=== PATIENT | female | born 1935 | race Caucasian/White ===

== ENCOUNTER 2017-08-18 10:31 | Inpatient (IN) | payer MEDICARE, BC, OTHER ==
[2017-08-18] MEDS: SOD CHLORIDE 0.9% 1,000 ML IV (11:08)
[2017-08-18 12:24] LABS: ADD UMIC YES; UR ASCORBIC ACID NEGATIVE (NEGATIVE); UR BILIRUBIN (Dip) NEGATIVE (NEGATIVE); UR BLOOD (Dip) 1+ mg/dL (NEGATIVE); UR CLARITY CLEAR (CLEAR); UR COLOR YELLOW (YELLOW); UR GLUCOSE (Dip) NEGATIVE (NEGATIVE); UR KETONES (Dip) NEGATIVE (NEGATIVE); UR LEUKOCYTE ESTERASE (Dip) NEGATIVE Leu/ul (NEGATIVE); UR NITRITE (Dip) NEGATIVE (NEGATIVE); UR RBC 0 /HPF (0-5); UR SPECIFIC GRAVITY (Dip) 1.014 (1.003-1.030); UR TOTAL PROTEIN (Dip) NEGATIVE (NEGATIVE); UR UROBILINOGEN (Dip) 1+ mg/dL (NEGATIVE); UR WBC 0 /HPF (0-5)
[2017-08-18] MEDS: morphine 4 MG/ML VIAL IV (12:24)
[2017-08-18] MEDS: ONDANSETRON 4 MG INJ IV (12:24)
[2017-08-18 12:37] LABS: ADD MAN DIFF? NO
[2017-08-18 12:40] LABS: WHITE BLOOD COUNT 5.7 10^3/ul (4.8-10.8)
[2017-08-18 12:40] LABS: BASOPHILS % 0.4 % (0.0-2.0); EOSINOPHILS # 0.3 10^3/ul (0.0-0.5); EOSINOPHILS % 5.8 % (0.0-7.0); HEMATOCRIT 38.1 % (37.0-47.0); HEMOGLOBIN 12.6 g/dl (12.0-16.0); LYMPHOCYTES # 0.7 10^3/ul (0.8-2.9); LYMPHOCYTES % 12.9 % (15.0-51.0); MEAN CORPUSCULAR HEMOGLOBIN 28.2 pg (29.0-33.0); MEAN CORPUSCULAR HGB CONC 33.1 g/dl (32.0-37.0); MEAN CORPUSCULAR VOLUME 85.2 fl (82.0-101.0); MEAN PLATELET VOLUME 8.9 fl (7.4-10.4); MONOCYTE # 0.5 10^3/ul (0.3-0.9); MONOCYTES % 8.1 % (0.0-11.0); NEUTROPHIL # 4.1 10^3/ul (1.6-7.5); NEUTROPHILS % 72.3 % (39.0-77.0); PLATELET COUNT 227 10^3/UL (140-415); RED BLOOD COUNT 4.47 10^6/ul (4.20-5.40); RED CELL DISTRIBUTION WIDTH 13.4 % (11.5-14.5)
[2017-08-18 12:46] LABS: AMPHETAMINE/METHAMPHETAMINE Negative (NEGATIVE); BARBITURATES Negative (NEGATIVE); BENZODIAZEPINES Negative (NEGATIVE); CANNABINOIDS Negative (NEGATIVE); COCAINE Negative (NEGATIVE); OPIATES Positive (NEGATIVE)
[2017-08-18 12:59] LABS: ALANINE AMINOTRANSFERASE 31 IU/L (13-69); ALBUMIN 3.9 g/dl (3.3-4.9); ALBUMIN/GLOBULIN RATIO 1.44; ALKALINE PHOSPHATASE 81 IU/L (42-121); ANION GAP 14 (8-16); ASPARTATE AMINO TRANSFERASE 22 IU/L (15-46); BILIRUBIN,INDIRECT 0.9 mg/dl (0-1.1); BILIRUBIN,TOTAL 0.9 mg/dl (0.2-1.3); BLOOD UREA NITROGEN 19 mg/dl (7-20); CALCIUM 9.7 mg/dl (8.4-10.2); CARBON DIOXIDE 27 mmol/L (21-31); CHLORIDE 99 mmol/L (97-110); CREATININE 0.75 mg/dl (0.44-1.00); GLUCOSE 98 mg/dl (70-220); SODIUM 135 mmol/L (135-144); TOTAL PROTEIN 6.6 g/dl (6.1-8.1)
[2017-08-18 13:08] LABS: ACETAMINOPHEN < 10.0 ug/ml (10.0-30.0); ETHANOL < 10.0 mg/dl; SALICYLATE < 1.0 mg/dl (5.0-30.0)
[2017-08-18 13:10] LABS: TROPONIN-I < 0.012 ng/ml (0.00-0.12)
[2017-08-18] MEDS ORDERED: ACETAMINOPHEN 325 MG TAB (15:52)
[2017-08-18] MEDS: ACETAMINOPHEN 325 MG TAB PO (16:04)
[2017-08-18] MEDS ORDERED: DOCUSATE SODIUM 100 MG CAP PO (16:30)
[2017-08-18] MEDS ORDERED: NACL 0.9% 3 ML SYG IV (16:30)
[2017-08-18] MEDS ORDERED: MAGNESIUM HYDROXIDE 30ML CUP PO (16:30)
[2017-08-18] MEDS ORDERED: GUAIFENESIN 20 MG/ML 5ML CUP PO (16:30)
[2017-08-18] MEDS: ENOXAPARIN 30 MG/0.3 ML SYG SC (20:26)
[2017-08-18] MEDS: GABAPENTIN 300 MG CAP PO (22:51)
[2017-08-18] MEDS: HYDROCODONE/APAP (5/325) TAB PO (22:51)
[2017-08-18] MEDS: DOCUSATE SODIUM 100 MG CAP PO (22:51)
[2017-08-18] MEDS: LATANOPROST 0.005% 2.5 ML OPH BOTH EYES (22:54)
[2017-08-19] MEDS: ONDANSETRON 4 MG INJ IV (06:07)
[2017-08-19] MEDS: PANTOPRAZOLE (EC) 40 MG TAB PO (06:07)
[2017-08-19] MEDS: HYDROCODONE/APAP (5/325) TAB PO ×3 (06:08→20:59)
[2017-08-19 06:09] LABS: ADD MAN DIFF? NO
[2017-08-19] MEDS: LATANOPROST 0.005% 2.5 ML OPH BOTH EYES ×2 (06:14→20:58)
[2017-08-19 06:16] LABS: BASOPHILS % 0.5 % (0.0-2.0); EOSINOPHILS # 0.4 10^3/ul (0.0-0.5); EOSINOPHILS % 7.2 % (0.0-7.0); HEMATOCRIT 36.6 % (37.0-47.0); LYMPHOCYTES # 0.8 10^3/ul (0.8-2.9); LYMPHOCYTES % 13.6 % (15.0-51.0); MEAN CORPUSCULAR HEMOGLOBIN 27.9 pg (29.0-33.0); MEAN CORPUSCULAR HGB CONC 32.8 g/dl (32.0-37.0); MEAN CORPUSCULAR VOLUME 85.1 fl (82.0-101.0); MONOCYTE # 0.6 10^3/ul (0.3-0.9); MONOCYTES % 10.7 % (0.0-11.0); NEUTROPHILS % 67.8 % (39.0-77.0); PLATELET COUNT 226 10^3/UL (140-415); RED CELL DISTRIBUTION WIDTH 13.5 % (11.5-14.5)
[2017-08-19 06:16] LABS: WHITE BLOOD COUNT 5.8 10^3/ul (4.8-10.8)
[2017-08-19 06:30] LABS: HEMOGLOBIN A1C 5.3 % (0-5.9)
[2017-08-19 06:34] LABS: ALANINE AMINOTRANSFERASE 28 IU/L (13-69); ALBUMIN 3.6 g/dl (3.3-4.9); ALBUMIN/GLOBULIN RATIO 1.24; ALKALINE PHOSPHATASE 68 IU/L (42-121); ANION GAP 17 (8-16); ASPARTATE AMINO TRANSFERASE 23 IU/L (15-46); BILIRUBIN,INDIRECT 0.8 mg/dl (0-1.1); BILIRUBIN,TOTAL 0.8 mg/dl (0.2-1.3); BLOOD UREA NITROGEN 15 mg/dl (7-20); CALCIUM 9.3 mg/dl (8.4-10.2); CARBON DIOXIDE 26 mmol/L (21-31); CHLORIDE 100 mmol/L (97-110); CREATININE 0.77 mg/dl (0.44-1.00); GLUCOSE 92 mg/dl (70-220); POTASSIUM 4.5 mmol/L (3.5-5.1); SODIUM 138 mmol/L (135-144); TOTAL PROTEIN 6.5 g/dl (6.1-8.1)
[2017-08-19] MEDS ORDERED: PANTOPRAZOLE (EC) 40 MG TAB PO (09:00)
[2017-08-19] MEDS: DULOXETINE 30 MG CAP DR PO (09:05)
[2017-08-19] MEDS: POLYETHYLENE GLYCOL 17 GM PACKET PO (09:05)
[2017-08-19] MEDS: GABAPENTIN 300 MG CAP PO ×3 (09:05→20:58)
[2017-08-19] MEDS: DOCUSATE SODIUM 100 MG CAP PO ×2 (09:06→20:58)
[2017-08-19] MEDS: ENOXAPARIN 30 MG/0.3 ML SYG SC (09:09)
[2017-08-20] MEDS: HYDROCODONE/APAP (5/325) TAB PO ×2 (05:06→17:02)
[2017-08-20] MEDS: PANTOPRAZOLE (EC) 40 MG TAB PO (05:06)
[2017-08-20] MEDS: GABAPENTIN 300 MG CAP PO ×3 (08:16→20:30)
[2017-08-20] MEDS: ASPIRIN 81 MG TAB PO (08:16)
[2017-08-20] MEDS: DULOXETINE 30 MG CAP DR PO (08:17)
[2017-08-20] MEDS: POLYETHYLENE GLYCOL 17 GM PACKET PO (08:17)
[2017-08-20] MEDS: DOCUSATE SODIUM 100 MG CAP PO ×2 (08:17→20:30)
[2017-08-20] MEDS: ENOXAPARIN 30 MG/0.3 ML SYG SC (08:22)
[2017-08-20] MEDS: LATANOPROST 0.005% 2.5 ML OPH BOTH EYES (20:30)
[2017-08-21] MEDS: PANTOPRAZOLE (EC) 40 MG TAB PO (05:04)
[2017-08-21] MEDS: HYDROCODONE/APAP (5/325) TAB PO ×3 (06:15→20:57)
[2017-08-21 06:52] LABS: CHOL/HDL RATIO 2.9 RATIO; HDL CHOLESTEROL 55 mg/dl (33-92); LDL CHOLESTEROL,CALCULATED 94 mg/dl; TRIGLYCERIDES 57 mg/dl (0-149)
[2017-08-21 06:52] LABS: CHOLESTEROL 160 mg/dl (100-200)
[2017-08-21] MEDS: DOCUSATE SODIUM 100 MG CAP PO ×2 (09:00→21:00)
[2017-08-21] MEDS: DULOXETINE 30 MG CAP DR PO (09:00)
[2017-08-21] MEDS: GABAPENTIN 300 MG CAP PO ×3 (09:00→20:57)
[2017-08-21] MEDS: ASPIRIN 81 MG TAB PO (09:00)
[2017-08-21] MEDS: ENOXAPARIN 30 MG/0.3 ML SYG SC (09:00)
[2017-08-21] MEDS: POLYETHYLENE GLYCOL 17 GM PACKET PO (09:00)
[2017-08-21] MEDS: morphine 2 MG INJ IV (14:56)
[2017-08-21] MEDS: hydrALAzine 20 MG INJ IV (15:26)
[2017-08-21] MEDS: ACETAMINOPHEN 325 MG TAB PO (17:14)
[2017-08-21] MEDS: AMLODIPINE 5 MG TAB PO (17:14)
[2017-08-21] MEDS: LATANOPROST 0.005% 2.5 ML OPH BOTH EYES (21:01)
[2017-08-22] MEDS: PANTOPRAZOLE (EC) 40 MG TAB PO (05:58)
[2017-08-22] MEDS ORDERED: morphine 2 MG INJ IV (07:30)
[2017-08-22] MEDS: DEXTROSE 5%-0.45% NACL 1,000 ML IV (08:01)
[2017-08-22] MEDS: morphine 2 MG INJ IV ×2 (08:01→11:46)
[2017-08-22] MEDS: DULOXETINE 30 MG CAP DR PO (09:00)
[2017-08-22] MEDS: POLYETHYLENE GLYCOL 17 GM PACKET PO (09:00)
[2017-08-22] MEDS: ASPIRIN 81 MG TAB PO (09:00)
[2017-08-22] MEDS: LISINOPRIL 10 MG TAB PO (09:00)
[2017-08-22] MEDS: AMLODIPINE 5 MG TAB PO (09:00)
[2017-08-22] MEDS: GABAPENTIN 300 MG CAP PO ×3 (09:00→21:00)
[2017-08-22] MEDS: ENOXAPARIN 30 MG/0.3 ML SYG SC (09:00)
[2017-08-22] MEDS: DOCUSATE SODIUM 100 MG CAP PO ×2 (09:00→21:00)
[2017-08-22] MEDS ORDERED: POLYMYXIN/BACITRACIN 1L IRRIG (13:54)
[2017-08-22] MEDS ORDERED: morphine SULFATE/PF (10 MG/10 ML) INJ (14:18)
[2017-08-22] MEDS ORDERED: MIDAZOLAM 1 MG/ML 2 ML INJ (14:18)
[2017-08-22] MEDS ORDERED: FENTAnyl 50 MCG/ML VIAL (14:18)
[2017-08-22] MEDS ORDERED: PHENYLephrine (100 MCG/ML) 5ML SYG (15:17)
[2017-08-22] MEDS ORDERED: PHENYLephrine 10 MG INJ (16:25)
[2017-08-22] MEDS: TRANEXAMIC ACID 1,000 MG in DEXTROSE 5% 100 ML IV (16:28)
[2017-08-22] MEDS ORDERED: LIDOCAINE 2% (SDV) 5 ML INJ (16:56)
[2017-08-22] MEDS ORDERED: ROCURONIUM 50 MG INJ (16:56)
[2017-08-22] MEDS ORDERED: CEFAZOLIN 1 GM INJ (16:56)
[2017-08-22] MEDS ORDERED: ETOMIDATE 20 MG INJ (16:56)
[2017-08-22] MEDS ORDERED: ONDANSETRON 4 MG INJ (16:57)
[2017-08-22] MEDS ORDERED: BACITRACIN 0.9 GM OINT ×2 (16:57→16:58)
[2017-08-22] MEDS ORDERED: MUPIROCIN 2% 15 GM CR (16:59)
[2017-08-22] MEDS ORDERED: D5W-0.45 NACL + KCL 10 MEQ 1,000 ML IV (17:01)
[2017-08-22] MEDS ORDERED: FENTAnyl 50 MCG/ML VIAL IV (17:30)
[2017-08-22] MEDS ORDERED: HYDROCODONE/APAP (5/325) TAB PO (17:30)
[2017-08-22] MEDS ORDERED: HYDROmorphONE (0.2 MG/ML) 10ML SYG IV ×2 (17:30)
[2017-08-22] MEDS ORDERED: HYDROmorphONE 0.5 MG/0.5 ML SYG IV (17:30)
[2017-08-22] MEDS ORDERED: MEPERIDINE 25 MG INJ IV (17:30)
[2017-08-22] MEDS ORDERED: NACL 0.9% 3 ML SYG IV (17:30)
[2017-08-22] MEDS ORDERED: DIPHENHYDRAMINE 50 MG INJ IV (17:30)
[2017-08-22 17:31] LABS: HEMATOCRIT 34.6 % (37.0-47.0); HEMOGLOBIN 11.3 g/dl (12.0-16.0)
[2017-08-22 17:48] LABS: ANION GAP 15 (8-16); BLOOD UREA NITROGEN 22 mg/dl (7-20); CALCIUM 8.6 mg/dl (8.4-10.2); CARBON DIOXIDE 25 mmol/L (21-31); CHLORIDE 99 mmol/L (97-110); CREATININE 0.83 mg/dl (0.44-1.00); GLUCOSE 145 mg/dl (70-220); POTASSIUM 4.6 mmol/L (3.5-5.1); SODIUM 134 mmol/L (135-144)
[2017-08-22] MEDS: METOCLOPRAMIDE 10 MG INJ IV ×2 (18:24→18:29)
[2017-08-22] MEDS: ONDANSETRON 4 MG INJ IV (18:30)
[2017-08-22] MEDS: LACTATED RINGER'S 500 ML IV (18:42)
[2017-08-22] MEDS: EPHEDrine SULFATE 50 MG/5 ML SYG IV (18:57)
[2017-08-22] MEDS: D5W-0.45 NACL + KCL 10 MEQ 1,000 ML IV (20:30)
[2017-08-22] MEDS: CEFAZOLIN 1 GM/50 ML (PMX) 50 ML IVPB (20:33)
[2017-08-22] MEDS: ACETAMINOPHEN 325 MG TAB PO (20:45)
[2017-08-22] MEDS: LATANOPROST 0.005% 2.5 ML OPH BOTH EYES (22:22)
[2017-08-23] MEDS: CEFAZOLIN 1 GM/50 ML (PMX) 50 ML IVPB ×2 (04:35→09:01)
[2017-08-23] MEDS: PANTOPRAZOLE (EC) 40 MG TAB PO (05:06)
[2017-08-23] MEDS: ACETAMINOPHEN 325 MG TAB PO ×2 (05:07→17:43)
[2017-08-23] MEDS: D5W-0.45 NACL + KCL 10 MEQ 1,000 ML IV (05:43)
[2017-08-23] MEDS: DULOXETINE 30 MG CAP DR PO (08:44)
[2017-08-23] MEDS: ASPIRIN 81 MG TAB PO (08:48)
[2017-08-23] MEDS: GABAPENTIN 300 MG CAP PO ×3 (08:48→20:42)
[2017-08-23] MEDS: AMLODIPINE 5 MG TAB PO (08:49)
[2017-08-23] MEDS: LISINOPRIL 10 MG TAB PO (08:50)
[2017-08-23] MEDS: POLYETHYLENE GLYCOL 17 GM PACKET PO (08:50)
[2017-08-23] MEDS: DOCUSATE SODIUM 100 MG CAP PO ×2 (08:51→20:42)
[2017-08-23] MEDS: ENOXAPARIN 30 MG/0.3 ML SYG SC (08:59)
[2017-08-23] MEDS ORDERED: ENOXAPARIN 40 MG/0.4 ML SYG SC (09:00)
[2017-08-23] MEDS: HYDROCODONE/APAP (5/325) TAB PO ×2 (09:43→23:55)
[2017-08-23 11:25] LABS: ADD MAN DIFF? NO
[2017-08-23 11:28] LABS: WHITE BLOOD COUNT 7.6 10^3/ul (4.8-10.8)
[2017-08-23 11:28] LABS: ABNORMAL IP MESSAGE 1; BASOPHILS % 0.3 % (0.0-2.0); EOSINOPHILS # 0.1 10^3/ul (0.0-0.5); EOSINOPHILS % 0.8 % (0.0-7.0); HEMATOCRIT 25.8 % (37.0-47.0); HEMOGLOBIN 8.3 g/dl (12.0-16.0); LYMPHOCYTES # 0.6 10^3/ul (0.8-2.9); LYMPHOCYTES % 7.6 % (15.0-51.0); MEAN CORPUSCULAR HEMOGLOBIN 27.7 pg (29.0-33.0); MEAN CORPUSCULAR HGB CONC 32.2 g/dl (32.0-37.0); MONOCYTE # 0.8 10^3/ul (0.3-0.9); MONOCYTES % 10.5 % (0.0-11.0); NEUTROPHIL # 6.1 10^3/ul (1.6-7.5); NEUTROPHILS % 80.4 % (39.0-77.0); PLATELET COUNT 197 10^3/UL (140-415); RED CELL DISTRIBUTION WIDTH 13.6 % (11.5-14.5)
[2017-08-23 11:34] LABS: POSITIVE DIFF @See below
[2017-08-23 13:00] LABS: ANION GAP 15 (8-16); BLOOD UREA NITROGEN 26 mg/dl (7-20); CALCIUM 7.8 mg/dl (8.4-10.2); CARBON DIOXIDE 23 mmol/L (21-31); CHLORIDE 98 mmol/L (97-110); CREATININE 1.01 mg/dl (0.44-1.00); GLUCOSE 131 mg/dl (70-220); POTASSIUM 4.8 mmol/L (3.5-5.1); SODIUM 131 mmol/L (135-144)
[2017-08-23 18:06] LABS: IMMEDIATE SPIN CROSSMATCH 1 3
[2017-08-23] MEDS: LATANOPROST 0.005% 2.5 ML OPH BOTH EYES (20:42)
[2017-08-24 05:14] LABS: ADD MAN DIFF? NO; BASOPHILS % 0.4 % (0.0-2.0); EOSINOPHILS # 0.3 10^3/ul (0.0-0.5); EOSINOPHILS % 3.4 % (0.0-7.0); HEMATOCRIT 23.9 % (37.0-47.0); HEMOGLOBIN 8.1 g/dl (12.0-16.0); LYMPHOCYTES # 0.9 10^3/ul (0.8-2.9); LYMPHOCYTES % 9.6 % (15.0-51.0); MEAN CORPUSCULAR HEMOGLOBIN 28.4 pg (29.0-33.0); MEAN CORPUSCULAR HGB CONC 33.9 g/dl (32.0-37.0); MEAN CORPUSCULAR VOLUME 83.9 fl (82.0-101.0); MEAN PLATELET VOLUME 9.5 fl (7.4-10.4); MONOCYTE # 1.2 10^3/ul (0.3-0.9); MONOCYTES % 12.6 % (0.0-11.0); NEUTROPHIL # 7.2 10^3/ul (1.6-7.5); NEUTROPHILS % 73.7 % (39.0-77.0); PLATELET COUNT 187 10^3/UL (140-415); RED BLOOD COUNT 2.85 10^6/ul (4.20-5.40)
[2017-08-24 05:14] LABS: WHITE BLOOD COUNT 9.7 10^3/ul (4.8-10.8)
[2017-08-24 05:38] LABS: ANION GAP 13 (8-16); BLOOD UREA NITROGEN 38 mg/dl (7-20); CALCIUM 7.7 mg/dl (8.4-10.2); CARBON DIOXIDE 23 mmol/L (21-31); CHLORIDE 99 mmol/L (97-110); GLUCOSE 98 mg/dl (70-220); SODIUM 130 mmol/L (135-144)
[2017-08-24 05:41] LABS: PHOSPHORUS 3.5 mg/dl (2.5-4.9)
[2017-08-24 05:41] LABS: MAGNESIUM 1.8 mg/dl (1.7-2.5)
[2017-08-24] MEDS: PANTOPRAZOLE (EC) 40 MG TAB PO (05:47)
[2017-08-24] MEDS: HYDROCODONE/APAP (5/325) TAB PO ×5 (05:50→19:10)
[2017-08-24] MEDS: LISINOPRIL 10 MG TAB PO (09:00)
[2017-08-24] MEDS: DULOXETINE 30 MG CAP DR PO (09:17)
[2017-08-24] MEDS: GABAPENTIN 300 MG CAP PO ×3 (09:18→21:00)
[2017-08-24] MEDS: DOCUSATE SODIUM 100 MG CAP PO ×2 (09:18→21:00)
[2017-08-24] MEDS: POLYETHYLENE GLYCOL 17 GM PACKET PO (09:18)
[2017-08-24] MEDS: AMLODIPINE 5 MG TAB PO (09:20)
[2017-08-24] MEDS: ASPIRIN 81 MG TAB PO (09:20)
[2017-08-24] MEDS: ENOXAPARIN 30 MG/0.3 ML SYG SC (09:22)
[2017-08-24] MEDS: morphine 2 MG INJ IV ×2 (14:10→19:41)
[2017-08-24 16:40] LABS: ADD UMIC YES; UR ASCORBIC ACID NEGATIVE (NEGATIVE); UR BACTERIA FEW /HPF (NONE SEEN); UR BILIRUBIN (Dip) NEGATIVE (NEGATIVE); UR BLOOD (Dip) 1+ mg/dL (NEGATIVE); UR CLARITY CLOUDY (CLEAR); UR COLOR YELLOW (YELLOW); UR GLUCOSE (Dip) NEGATIVE (NEGATIVE); UR KETONES (Dip) NEGATIVE (NEGATIVE); UR LEUKOCYTE ESTERASE (Dip) 3+ Leu/ul (NEGATIVE); UR MUCUS FEW /HPF (NONE SEEN); UR NITRITE (Dip) NEGATIVE (NEGATIVE); UR NONSQUAMOUS EPITHELIAL CELL 1 /HPF (NONE SEEN); UR RBC 9 /HPF (0-5); UR SPECIFIC GRAVITY (Dip) 1.017 (1.003-1.030); UR SQUAMOUS EPITHELIAL CELL MODERATE /HPF (FEW); UR TOTAL PROTEIN (Dip) NEGATIVE (NEGATIVE); UR UROBILINOGEN (Dip) 1+ mg/dL (NEGATIVE); UR WBC 145 /HPF (0-5)
[2017-08-24] MEDS: CEFTRIAXONE 1 GM/50 ML (PMX) 50 ML IVPB (19:11)
[2017-08-24] MEDS: ONDANSETRON 4 MG INJ IV (19:46)
[2017-08-24] MEDS: LATANOPROST 0.005% 2.5 ML OPH BOTH EYES (21:00)
[2017-08-25 04:38] LABS: ADD MAN DIFF? NO
[2017-08-25 04:47] LABS: WHITE BLOOD COUNT 7.8 10^3/ul (4.8-10.8)
[2017-08-25 04:47] LABS: BASOPHILS % 0.4 % (0.0-2.0); EOSINOPHILS # 0.5 10^3/ul (0.0-0.5); EOSINOPHILS % 6.9 % (0.0-7.0); HEMATOCRIT 26.2 % (37.0-47.0); HEMOGLOBIN 8.7 g/dl (12.0-16.0); LYMPHOCYTES % 12.1 % (15.0-51.0); MEAN CORPUSCULAR HEMOGLOBIN 28.4 pg (29.0-33.0); MEAN CORPUSCULAR HGB CONC 33.2 g/dl (32.0-37.0); MEAN CORPUSCULAR VOLUME 85.6 fl (82.0-101.0); MEAN PLATELET VOLUME 9.2 fl (7.4-10.4); MONOCYTES % 12.1 % (0.0-11.0); NEUTROPHIL # 5.3 10^3/ul (1.6-7.5); PLATELET COUNT 203 10^3/UL (140-415); RED BLOOD COUNT 3.06 10^6/ul (4.20-5.40)
[2017-08-25 05:07] LABS: ANION GAP 12 (8-16); BLOOD UREA NITROGEN 42 mg/dl (7-20); CALCIUM 8.3 mg/dl (8.4-10.2); CARBON DIOXIDE 25 mmol/L (21-31); CHLORIDE 100 mmol/L (97-110); CREATININE 1.11 mg/dl (0.44-1.00); GLUCOSE 100 mg/dl (70-220); MAGNESIUM 2.1 mg/dl (1.7-2.5); POTASSIUM 5.4 mmol/L (3.5-5.1); SODIUM 132 mmol/L (135-144)
[2017-08-25 05:07] LABS: PHOSPHORUS 3.6 mg/dl (2.5-4.9)
[2017-08-25] MEDS: morphine 2 MG INJ IV ×2 (05:21→11:58)
[2017-08-25] MEDS: PANTOPRAZOLE (EC) 40 MG TAB PO (05:21)
[2017-08-25] MEDS: AMLODIPINE 5 MG TAB PO (08:13)
[2017-08-25] MEDS: GABAPENTIN 300 MG CAP PO ×3 (08:13→21:40)
[2017-08-25] MEDS: ASPIRIN 81 MG TAB PO (08:14)
[2017-08-25] MEDS: DOCUSATE SODIUM 100 MG CAP PO ×2 (08:14→21:40)
[2017-08-25] MEDS: DULOXETINE 30 MG CAP DR PO (08:15)
[2017-08-25] MEDS: POLYETHYLENE GLYCOL 17 GM PACKET PO (08:15)
[2017-08-25] MEDS: ENOXAPARIN 30 MG/0.3 ML SYG SC (08:16)
[2017-08-25] MEDS: HYDROCODONE/APAP (5/325) TAB PO ×2 (10:07→19:57)
[2017-08-25] MEDS: BISACODYL (EC) 5 MG TAB PO (16:24)
[2017-08-25] MEDS: MAGNESIUM HYDROXIDE 30ML CUP PO (16:25)
[2017-08-25] MEDS: CEFTRIAXONE 1 GM/50 ML (PMX) 50 ML IVPB (17:20)
[2017-08-25] MEDS: LATANOPROST 0.005% 2.5 ML OPH BOTH EYES (21:41)
[2017-08-25] MEDS: ACETAMINOPHEN 325 MG TAB PO (22:15)
[2017-08-26 04:47] LABS: ADD MAN DIFF? NO
[2017-08-26 04:53] LABS: BASOPHILS % 0.3 % (0.0-2.0); EOSINOPHILS # 0.5 10^3/ul (0.0-0.5); EOSINOPHILS % 7.7 % (0.0-7.0); HEMATOCRIT 28.7 % (37.0-47.0); HEMOGLOBIN 9.5 g/dl (12.0-16.0); LYMPHOCYTES # 0.7 10^3/ul (0.8-2.9); LYMPHOCYTES % 12.1 % (15.0-51.0); MEAN CORPUSCULAR HEMOGLOBIN 28.4 pg (29.0-33.0); MEAN CORPUSCULAR HGB CONC 33.1 g/dl (32.0-37.0); MEAN CORPUSCULAR VOLUME 85.9 fl (82.0-101.0); MEAN PLATELET VOLUME 9.2 fl (7.4-10.4); MONOCYTE # 0.7 10^3/ul (0.3-0.9); MONOCYTES % 11.1 % (0.0-11.0); NEUTROPHIL # 4.1 10^3/ul (1.6-7.5); NEUTROPHILS % 68.5 % (39.0-77.0); PLATELET COUNT 253 10^3/UL (140-415); RED BLOOD COUNT 3.34 10^6/ul (4.20-5.40); RED CELL DISTRIBUTION WIDTH 13.8 % (11.5-14.5)
[2017-08-26 05:12] LABS: MAGNESIUM 2.3 mg/dl (1.7-2.5)
[2017-08-26 05:12] LABS: PHOSPHORUS 3.3 mg/dl (2.5-4.9)
[2017-08-26 05:15] LABS: ANION GAP 14 (8-16); BLOOD UREA NITROGEN 36 mg/dl (7-20); CALCIUM 8.6 mg/dl (8.4-10.2); CARBON DIOXIDE 25 mmol/L (21-31); CHLORIDE 100 mmol/L (97-110); CREATININE 0.93 mg/dl (0.44-1.00); GLUCOSE 101 mg/dl (70-220); POTASSIUM 5.5 mmol/L (3.5-5.1); SODIUM 133 mmol/L (135-144)
[2017-08-26] MEDS: MAGNESIUM HYDROXIDE 30ML CUP PO (06:21)
[2017-08-26] MEDS: PANTOPRAZOLE (EC) 40 MG TAB PO (06:21)
[2017-08-26] MEDS: HYDROCODONE/APAP (5/325) TAB PO ×4 (06:22→20:49)
[2017-08-26] MEDS: DULOXETINE 30 MG CAP DR PO (09:48)
[2017-08-26] MEDS: DOCUSATE SODIUM 100 MG CAP PO ×2 (09:48→20:41)
[2017-08-26] MEDS: ENOXAPARIN 30 MG/0.3 ML SYG SC (09:48)
[2017-08-26] MEDS: POLYETHYLENE GLYCOL 17 GM PACKET PO (09:49)
[2017-08-26] MEDS: AMLODIPINE 5 MG TAB PO (09:49)
[2017-08-26] MEDS: GABAPENTIN 300 MG CAP PO ×3 (09:49→20:41)
[2017-08-26] MEDS: morphine 2 MG INJ IV (09:54)
[2017-08-26] MEDS: ASPIRIN 81 MG TAB PO (09:55)
[2017-08-26] MEDS: MAGNESIUM CITRATE 300 ML BTL PO (11:00)
[2017-08-26] MEDS: SOD CHLORIDE 0.9% 1,000 ML IV ×2 (11:46→23:30)
[2017-08-26] MEDS: CEFTRIAXONE 1 GM/50 ML (PMX) 50 ML IVPB (17:08)
[2017-08-26] MEDS: LATANOPROST 0.005% 2.5 ML OPH BOTH EYES (20:45)
[2017-08-27] MEDS: HYDROCODONE/APAP (5/325) TAB PO ×4 (04:27→19:30)
[2017-08-27 06:00] LABS: ADD MAN DIFF? NO
[2017-08-27 06:27] LABS: BASOPHILS % 0.4 % (0.0-2.0); EOSINOPHILS # 0.5 10^3/ul (0.0-0.5); EOSINOPHILS % 9.8 % (0.0-7.0); HEMATOCRIT 29.3 % (37.0-47.0); HEMOGLOBIN 9.5 g/dl (12.0-16.0); LYMPHOCYTES # 0.9 10^3/ul (0.8-2.9); LYMPHOCYTES % 18.3 % (15.0-51.0); MEAN CORPUSCULAR HEMOGLOBIN 28.4 pg (29.0-33.0); MEAN CORPUSCULAR HGB CONC 32.4 g/dl (32.0-37.0); MEAN CORPUSCULAR VOLUME 87.5 fl (82.0-101.0); MEAN PLATELET VOLUME 9.2 fl (7.4-10.4); MONOCYTE # 0.5 10^3/ul (0.3-0.9); MONOCYTES % 10.8 % (0.0-11.0); NEUTROPHILS % 60.1 % (39.0-77.0); PLATELET COUNT 276 10^3/UL (140-415); RED BLOOD COUNT 3.35 10^6/ul (4.20-5.40); RED CELL DISTRIBUTION WIDTH 13.9 % (11.5-14.5)
[2017-08-27 06:27] LABS: WHITE BLOOD COUNT 4.9 10^3/ul (4.8-10.8)
[2017-08-27 06:52] LABS: MAGNESIUM 2.3 mg/dl (1.7-2.5)
[2017-08-27 06:52] LABS: PHOSPHORUS 3.7 mg/dl (2.5-4.9)
[2017-08-27 07:00] LABS: ANION GAP 12 (8-16); BLOOD UREA NITROGEN 37 mg/dl (7-20); CALCIUM 8.8 mg/dl (8.4-10.2); CARBON DIOXIDE 26 mmol/L (21-31); CHLORIDE 100 mmol/L (97-110); CREATININE 0.94 mg/dl (0.44-1.00); GLUCOSE 88 mg/dl (70-220); POTASSIUM 5.5 mmol/L (3.5-5.1); SODIUM 132 mmol/L (135-144)
[2017-08-27] MEDS: MAGNESIUM HYDROXIDE 30ML CUP PO (07:02)
[2017-08-27] MEDS: PANTOPRAZOLE (EC) 40 MG TAB PO (07:02)
[2017-08-27] MEDS: POLYETHYLENE GLYCOL 17 GM PACKET PO (08:29)
[2017-08-27] MEDS: DULOXETINE 30 MG CAP DR PO (08:29)
[2017-08-27] MEDS: DOCUSATE SODIUM 100 MG CAP PO (08:29)
[2017-08-27] MEDS: GABAPENTIN 300 MG CAP PO ×2 (08:30→15:39)
[2017-08-27] MEDS: AMLODIPINE 5 MG TAB PO (08:33)
[2017-08-27] MEDS: ENOXAPARIN 30 MG/0.3 ML SYG SC (08:39)
[2017-08-27] MEDS: ASPIRIN 81 MG TAB PO (09:00)
[2017-08-27] MEDS: NA POLYST SULFON 15 GM/60 ML BTL PO (10:44)
[2017-08-27] MEDS: NA PHOSPHATE/BIPHOS 133 ML ENEMA PR (10:44)
[2017-08-27] MEDS: morphine 2 MG INJ IV (11:14)
[2017-08-27] MEDS: SOD CHLORIDE 0.9% 1,000 ML IV (12:00)
[2017-08-27] MEDS: CEFTRIAXONE 1 GM/50 ML (PMX) 50 ML IVPB (18:22)
[2017-08-27] MEDS ORDERED: BALSAM PERU/CASTOR OIL 60 GM TUBE TOP (21:00)
== END 2017-08-27 19:57 | DRG 469 ==
LOC: MS1 08-22 18:50 → E/R 10:31 → MS2 15:52
PROVIDERS: Pediatrics
PROC: 0SRS0JZ Replacement of Left Hip Joint, Femoral Surface with Synthetic Substitute, Open Approach (ICD-10-PCS; principal; 2017-08-22 13:00)
PROC: 30233N1 Transfusion of Nonautologous Red Blood Cells into Peripheral Vein, Percutaneous Approach (ICD-10-PCS; 2017-08-22 14:39)
DX: S72.012A Unspecified intracapsular fracture of left femur, initial encounter for closed fracture (principal); G92 Toxic encephalopathy; N17.9 Acute kidney failure, unspecified; N39.0 Urinary tract infection, site not specified; I10 Essential (primary) hypertension; W07.XXXA Fall from chair, initial encounter; Y92.098 Other place in other non-institutional residence as the place of occurrence of the external cause; F32.9 Major depressive disorder, single episode, unspecified; H40.9 Unspecified glaucoma; K59.00 Constipation, unspecified; M16.12 Unilateral primary osteoarthritis, left hip; M79.7 Fibromyalgia; E78.5 Hyperlipidemia, unspecified; M21.372 Foot drop, left foot; G93.89 Other specified disorders of brain; E87.5 Hyperkalemia; L89.152 Pressure ulcer of sacral region, stage 2; D64.9 Anemia, unspecified; Z86.73 Personal history of transient ischemic attack (TIA), and cerebral infarction without residual deficits
CPT/HCPCS: 36415; 36430; 70450; 70551; 71045; 72125; 72170; 72192; 73550; 73560; 80048; 80053; 80061; 80306; 80307; 81001; 82607; 83036; 83735; 84100; 84443; 84484; 85014; 85018; 85025; 86850; 86900; 86901; 86920; 87086; 88305; 88311; 93005; 93306; 96372; 96374; 96375; 97110; 97163; 97530; 99285-25

== ENCOUNTER 2017-08-27 19:59 | Inpatient (IN) | payer MEDICARE, BC ==
[2017-08-27] MEDS ORDERED: MAGNESIUM HYDROXIDE 30ML CUP PO ×2 (20:33)
[2017-08-27] MEDS ORDERED: DOCUSATE SODIUM 100 MG CAP PO (20:33)
[2017-08-27] MEDS ORDERED: AMLODIPINE 5 MG TAB PO (20:33)
[2017-08-27] MEDS ORDERED: GUAIFENESIN 20 MG/ML 5ML CUP PO (20:41)
[2017-08-27] MEDS ORDERED: NACL 0.9% 3 ML SYG IV ×2 (20:41)
[2017-08-27] MEDS ORDERED: ONDANSETRON 4 MG INJ IV (20:41)
[2017-08-27] MEDS: DOCUSATE SODIUM 100 MG CAP PO (22:00)
[2017-08-27] MEDS: GABAPENTIN 300 MG CAP PO (22:00)
[2017-08-27] MEDS: CEFTRIAXONE 1 GM/50 ML (PMX) 50 ML IVPB (22:00)
[2017-08-27] MEDS: HYDROCODONE/APAP (5/325) TAB PO (22:01)
[2017-08-27] MEDS: BALSAM PERU/CASTOR OIL 60 GM TUBE TOP (22:07)
[2017-08-27] MEDS: LATANOPROST 0.005% 2.5 ML OPH BOTH EYES (22:11)
[2017-08-27 23:21] LABS: ADD UMIC NO; UR ASCORBIC ACID NEGATIVE (NEGATIVE); UR BILIRUBIN (Dip) NEGATIVE (NEGATIVE); UR BLOOD (Dip) NEGATIVE (NEGATIVE); UR CLARITY CLEAR (CLEAR); UR COLOR YELLOW (YELLOW); UR GLUCOSE (Dip) NEGATIVE (NEGATIVE); UR KETONES (Dip) NEGATIVE (NEGATIVE); UR LEUKOCYTE ESTERASE (Dip) NEGATIVE Leu/ul (NEGATIVE); UR NITRITE (Dip) NEGATIVE (NEGATIVE); UR SPECIFIC GRAVITY (Dip) 1.012 (1.003-1.030); UR TOTAL PROTEIN (Dip) NEGATIVE (NEGATIVE); UR UROBILINOGEN (Dip) NEGATIVE (NEGATIVE)
[2017-08-28] MEDS: PANTOPRAZOLE (EC) 40 MG TAB PO (06:14)
[2017-08-28] MEDS: HYDROCODONE/APAP (5/325) TAB PO ×4 (06:14→18:58)
[2017-08-28 06:34] LABS: ADD MAN DIFF? NO
[2017-08-28 06:39] LABS: WHITE BLOOD COUNT 5.3 10^3/ul (4.8-10.8)
[2017-08-28 06:39] LABS: BASOPHILS % 0.6 % (0.0-2.0); EOSINOPHILS # 0.6 10^3/ul (0.0-0.5); EOSINOPHILS % 11.1 % (0.0-7.0); HEMATOCRIT 32.3 % (37.0-47.0); HEMOGLOBIN 10.5 g/dl (12.0-16.0); LYMPHOCYTES # 0.8 10^3/ul (0.8-2.9); LYMPHOCYTES % 14.3 % (15.0-51.0); MEAN CORPUSCULAR HEMOGLOBIN 28.1 pg (29.0-33.0); MEAN CORPUSCULAR HGB CONC 32.5 g/dl (32.0-37.0); MEAN CORPUSCULAR VOLUME 86.4 fl (82.0-101.0); MEAN PLATELET VOLUME 9.2 fl (7.4-10.4); MONOCYTE # 0.5 10^3/ul (0.3-0.9); MONOCYTES % 9.8 % (0.0-11.0); NEUTROPHIL # 3.4 10^3/ul (1.6-7.5); NEUTROPHILS % 63.4 % (39.0-77.0); PLATELET COUNT 320 10^3/UL (140-415); RED BLOOD COUNT 3.74 10^6/ul (4.20-5.40); RED CELL DISTRIBUTION WIDTH 13.9 % (11.5-14.5)
[2017-08-28 06:57] LABS: ALANINE AMINOTRANSFERASE 24 IU/L (13-69); ALBUMIN 2.9 g/dl (3.3-4.9); ALKALINE PHOSPHATASE 78 IU/L (42-121); ANION GAP 14 (8-16); ASPARTATE AMINO TRANSFERASE 24 IU/L (15-46); BILIRUBIN,INDIRECT 0.1 mg/dl (0-1.1); BILIRUBIN,TOTAL 0.1 mg/dl (0.2-1.3); BLOOD UREA NITROGEN 32 mg/dl (7-20); CALCIUM 9.1 mg/dl (8.4-10.2); CARBON DIOXIDE 26 mmol/L (21-31); CHLORIDE 100 mmol/L (97-110); GLUCOSE 93 mg/dl (70-220); SODIUM 135 mmol/L (135-144); TOTAL PROTEIN 5.8 g/dl (6.1-8.1)
[2017-08-28] MEDS: DULOXETINE 30 MG CAP DR PO (09:16)
[2017-08-28] MEDS: DOCUSATE SODIUM 100 MG CAP PO ×2 (09:16→20:41)
[2017-08-28] MEDS: ASPIRIN 81 MG TAB PO (09:16)
[2017-08-28] MEDS: ENOXAPARIN 30 MG/0.3 ML SYG SC (09:16)
[2017-08-28] MEDS: GABAPENTIN 300 MG CAP PO ×3 (09:17→20:40)
[2017-08-28] MEDS: POLYETHYLENE GLYCOL 17 GM PACKET PO (09:17)
[2017-08-28] MEDS: AMLODIPINE 2.5 MG TAB PO (09:17)
[2017-08-28] MEDS: BALSAM PERU/CASTOR OIL 60 GM TUBE TOP ×2 (09:18→20:41)
[2017-08-28] MEDS: CEFTRIAXONE 1 GM/50 ML (PMX) 50 ML IVPB (20:41)
[2017-08-28] MEDS: LATANOPROST 0.005% 2.5 ML OPH BOTH EYES (20:41)
[2017-08-29] MEDS: HYDROCODONE/APAP (5/325) TAB PO ×5 (01:26→21:52)
[2017-08-29] MEDS: PANTOPRAZOLE (EC) 40 MG TAB PO (06:06)
[2017-08-29] MEDS: POLYETHYLENE GLYCOL 17 GM PACKET PO (09:17)
[2017-08-29] MEDS: DULOXETINE 30 MG CAP DR PO (09:17)
[2017-08-29] MEDS: ASPIRIN 81 MG TAB PO (09:17)
[2017-08-29] MEDS: AMLODIPINE 2.5 MG TAB PO (09:17)
[2017-08-29] MEDS: DOCUSATE SODIUM 100 MG CAP PO ×2 (09:18→20:08)
[2017-08-29] MEDS: GABAPENTIN 300 MG CAP PO ×3 (09:18→20:08)
[2017-08-29] MEDS: BALSAM PERU/CASTOR OIL 60 GM TUBE TOP ×2 (09:19→20:09)
[2017-08-29] MEDS: ENOXAPARIN 30 MG/0.3 ML SYG SC (09:19)
[2017-08-29] MEDS: CEFTRIAXONE 1 GM/50 ML (PMX) 50 ML IVPB (20:08)
[2017-08-29] MEDS: LATANOPROST 0.005% 2.5 ML OPH BOTH EYES (20:09)
[2017-08-30] MEDS: HYDROCODONE/APAP (5/325) TAB PO ×5 (03:59→21:36)
[2017-08-30] MEDS: PANTOPRAZOLE (EC) 40 MG TAB PO (06:23)
[2017-08-30] MEDS: ACETAMINOPHEN 325 MG TAB PO (08:29)
[2017-08-30] MEDS: DULOXETINE 30 MG CAP DR PO (08:29)
[2017-08-30] MEDS: ASPIRIN 81 MG TAB PO (08:29)
[2017-08-30] MEDS: AMLODIPINE 2.5 MG TAB PO (08:30)
[2017-08-30] MEDS: POLYETHYLENE GLYCOL 17 GM PACKET PO (08:30)
[2017-08-30] MEDS: DOCUSATE SODIUM 100 MG CAP PO ×2 (08:30→20:33)
[2017-08-30] MEDS: GABAPENTIN 300 MG CAP PO ×3 (08:30→20:34)
[2017-08-30] MEDS: ENOXAPARIN 30 MG/0.3 ML SYG SC (08:39)
[2017-08-30] MEDS: BALSAM PERU/CASTOR OIL 60 GM TUBE TOP ×2 (09:00→20:37)
[2017-08-30] MEDS: LATANOPROST 0.005% 2.5 ML OPH BOTH EYES (20:33)
[2017-08-31] MEDS: HYDROCODONE/APAP (5/325) TAB PO ×4 (03:55→19:32)
[2017-08-31] MEDS: PANTOPRAZOLE (EC) 40 MG TAB PO (06:25)
[2017-08-31] MEDS: POLYETHYLENE GLYCOL 17 GM PACKET PO (09:00)
[2017-08-31] MEDS: DOCUSATE SODIUM 100 MG CAP PO ×2 (09:00→21:49)
[2017-08-31] MEDS: DULOXETINE 30 MG CAP DR PO (09:10)
[2017-08-31] MEDS: PRENATAL VITAMIN PO (09:10)
[2017-08-31] MEDS: FOLIC ACID 1 MG TAB PO (09:11)
[2017-08-31] MEDS: ASPIRIN 81 MG TAB PO (09:11)
[2017-08-31] MEDS: GABAPENTIN 300 MG CAP PO ×3 (09:12→21:50)
[2017-08-31] MEDS: ASCORBIC ACID 500 MG TAB PO (09:12)
[2017-08-31] MEDS: AMLODIPINE 2.5 MG TAB PO (09:13)
[2017-08-31] MEDS: ENOXAPARIN 30 MG/0.3 ML SYG SC (09:16)
[2017-08-31] MEDS: BALSAM PERU/CASTOR OIL 60 GM TUBE TOP ×2 (09:17→21:00)
[2017-08-31] MEDS: ACETAMINOPHEN 325 MG TAB PO (16:11)
[2017-08-31] MEDS: LATANOPROST 0.005% 2.5 ML OPH BOTH EYES (21:50)
[2017-09-01] MEDS: HYDROCODONE/APAP (5/325) TAB PO ×5 (03:48→20:34)
[2017-09-01] MEDS: PANTOPRAZOLE (EC) 40 MG TAB PO (06:49)
[2017-09-01] MEDS: ASPIRIN 81 MG TAB PO (09:06)
[2017-09-01] MEDS: POLYETHYLENE GLYCOL 17 GM PACKET PO (09:06)
[2017-09-01] MEDS: DOCUSATE SODIUM 100 MG CAP PO ×2 (09:07→20:36)
[2017-09-01] MEDS: DULOXETINE 30 MG CAP DR PO (09:07)
[2017-09-01] MEDS: ASCORBIC ACID 500 MG TAB PO (09:07)
[2017-09-01] MEDS: GABAPENTIN 300 MG CAP PO ×3 (09:07→20:34)
[2017-09-01] MEDS: FOLIC ACID 1 MG TAB PO (09:08)
[2017-09-01] MEDS: AMLODIPINE 2.5 MG TAB PO (09:08)
[2017-09-01] MEDS: BALSAM PERU/CASTOR OIL 60 GM TUBE TOP ×2 (09:09→20:36)
[2017-09-01] MEDS: PRENATAL VITAMIN PO (09:11)
[2017-09-01] MEDS: ENOXAPARIN 30 MG/0.3 ML SYG SC (09:24)
[2017-09-01] MEDS ORDERED: POLYETHYLENE GLYCOL 17 GM PACKET PO (13:30)
[2017-09-01] MEDS: LATANOPROST 0.005% 2.5 ML OPH BOTH EYES (20:36)
[2017-09-02] MEDS: HYDROCODONE/APAP (5/325) TAB PO ×5 (06:14→22:52)
[2017-09-02] MEDS: PANTOPRAZOLE (EC) 40 MG TAB PO (06:14)
[2017-09-02] MEDS: PRENATAL VITAMIN PO ×2 (09:00→14:51)
[2017-09-02] MEDS: BALSAM PERU/CASTOR OIL 60 GM TUBE TOP ×3 (09:00→22:14)
[2017-09-02] MEDS: DOCUSATE SODIUM 100 MG CAP PO ×2 (09:07→22:12)
[2017-09-02] MEDS: ASPIRIN 81 MG TAB PO (09:07)
[2017-09-02] MEDS: DULOXETINE 30 MG CAP DR PO (09:07)
[2017-09-02] MEDS: GABAPENTIN 300 MG CAP PO ×3 (09:08→22:12)
[2017-09-02] MEDS: FOLIC ACID 1 MG TAB PO (09:08)
[2017-09-02] MEDS: AMLODIPINE 2.5 MG TAB PO (09:08)
[2017-09-02] MEDS: ENOXAPARIN 30 MG/0.3 ML SYG SC (09:09)
[2017-09-02] MEDS: ASCORBIC ACID 500 MG TAB PO (09:13)
[2017-09-02] MEDS: LATANOPROST 0.005% 2.5 ML OPH BOTH EYES (22:14)
[2017-09-03 06:13] LABS: ADD MAN DIFF? NO
[2017-09-03] MEDS: HYDROCODONE/APAP (5/325) TAB PO ×5 (06:13→18:39)
[2017-09-03] MEDS: PANTOPRAZOLE (EC) 40 MG TAB PO (06:13)
[2017-09-03 06:19] LABS: BASOPHILS % 0.8 % (0.0-2.0); EOSINOPHILS % 19.7 % (0.0-7.0); HEMATOCRIT 29.9 % (37.0-47.0); HEMOGLOBIN 9.8 g/dl (12.0-16.0); LYMPHOCYTES # 1.2 10^3/ul (0.8-2.9); LYMPHOCYTES % 23.1 % (15.0-51.0); MEAN CORPUSCULAR HEMOGLOBIN 28.2 pg (29.0-33.0); MEAN CORPUSCULAR HGB CONC 32.8 g/dl (32.0-37.0); MEAN CORPUSCULAR VOLUME 86.2 fl (82.0-101.0); MEAN PLATELET VOLUME 8.4 fl (7.4-10.4); MONOCYTE # 0.5 10^3/ul (0.3-0.9); MONOCYTES % 9.2 % (0.0-11.0); NEUTROPHIL # 2.3 10^3/ul (1.6-7.5); NEUTROPHILS % 46.6 % (39.0-77.0); PLATELET COUNT 421 10^3/UL (140-415); RED BLOOD COUNT 3.47 10^6/ul (4.20-5.40); RED CELL DISTRIBUTION WIDTH 14.3 % (11.5-14.5)
[2017-09-03 06:36] LABS: MAGNESIUM 2.2 mg/dl (1.7-2.5)
[2017-09-03 06:36] LABS: PHOSPHORUS 3.9 mg/dl (2.5-4.9)
[2017-09-03 06:41] LABS: ANION GAP 12 (8-16); BLOOD UREA NITROGEN 34 mg/dl (7-20); CALCIUM 8.7 mg/dl (8.4-10.2); CARBON DIOXIDE 30 mmol/L (21-31); CHLORIDE 99 mmol/L (97-110); CREATININE 0.71 mg/dl (0.44-1.00); GLUCOSE 84 mg/dl (70-220); POTASSIUM 4.9 mmol/L (3.5-5.1); SODIUM 136 mmol/L (135-144)
[2017-09-03] MEDS: ASCORBIC ACID 500 MG TAB PO (09:23)
[2017-09-03] MEDS: DULOXETINE 30 MG CAP DR PO (09:23)
[2017-09-03] MEDS: PRENATAL VITAMIN PO (09:27)
[2017-09-03] MEDS: GABAPENTIN 300 MG CAP PO ×3 (09:27→20:48)
[2017-09-03] MEDS: FOLIC ACID 1 MG TAB PO (09:27)
[2017-09-03] MEDS: ASPIRIN 81 MG TAB PO (09:27)
[2017-09-03] MEDS: AMLODIPINE 2.5 MG TAB PO (09:28)
[2017-09-03] MEDS: DOCUSATE SODIUM 100 MG CAP PO ×2 (09:28→20:48)
[2017-09-03] MEDS: BALSAM PERU/CASTOR OIL 60 GM TUBE TOP ×2 (09:29→20:49)
[2017-09-03] MEDS: ENOXAPARIN 30 MG/0.3 ML SYG SC (09:31)
[2017-09-03] MEDS: morphine (ER) 15 MG TAB PO (20:49)
[2017-09-03] MEDS: LATANOPROST 0.005% 2.5 ML OPH BOTH EYES (20:55)
[2017-09-03] MEDS: HYDROCODONE/APAP (10/325) TAB PO (22:58)
[2017-09-04] MEDS: PANTOPRAZOLE (EC) 40 MG TAB PO (06:43)
[2017-09-04] MEDS: HYDROCODONE/APAP (5/325) TAB PO (06:44)
[2017-09-04] MEDS: ASPIRIN 81 MG TAB PO (08:33)
[2017-09-04] MEDS: ASCORBIC ACID 500 MG TAB PO (08:33)
[2017-09-04] MEDS: GABAPENTIN 300 MG CAP PO ×3 (08:33→20:59)
[2017-09-04] MEDS: DULOXETINE 30 MG CAP DR PO (08:33)
[2017-09-04] MEDS: DOCUSATE SODIUM 100 MG CAP PO ×2 (08:33→20:59)
[2017-09-04] MEDS: FOLIC ACID 1 MG TAB PO (08:34)
[2017-09-04] MEDS: AMLODIPINE 2.5 MG TAB PO (08:34)
[2017-09-04] MEDS: PRENATAL VITAMIN PO (08:34)
[2017-09-04] MEDS: morphine (ER) 15 MG TAB PO ×2 (08:34→20:59)
[2017-09-04] MEDS: BALSAM PERU/CASTOR OIL 60 GM TUBE TOP ×2 (08:35→21:02)
[2017-09-04] MEDS: HYDROCODONE/APAP (10/325) TAB PO ×3 (10:51→19:04)
[2017-09-04] MEDS: RIVAROXABAN 10 MG TABLET PO (18:28)
[2017-09-04] MEDS: LATANOPROST 0.005% 2.5 ML OPH BOTH EYES (21:08)
[2017-09-05] MEDS: HYDROCODONE/APAP (10/325) TAB PO ×5 (04:53→20:35)
[2017-09-05] MEDS: PANTOPRAZOLE (EC) 40 MG TAB PO (06:20)
[2017-09-05] MEDS: DULOXETINE 30 MG CAP DR PO (08:41)
[2017-09-05] MEDS: BALSAM PERU/CASTOR OIL 60 GM TUBE TOP ×2 (08:41→20:54)
[2017-09-05] MEDS: ASPIRIN 81 MG TAB PO (08:42)
[2017-09-05] MEDS: DOCUSATE SODIUM 100 MG CAP PO ×2 (08:42→20:26)
[2017-09-05] MEDS: GABAPENTIN 300 MG CAP PO ×3 (08:42→20:25)
[2017-09-05] MEDS: AMLODIPINE 2.5 MG TAB PO (08:42)
[2017-09-05] MEDS: morphine (ER) 15 MG TAB PO ×3 (08:42→20:34)
[2017-09-05] MEDS: ASCORBIC ACID 500 MG TAB PO (08:42)
[2017-09-05] MEDS: FOLIC ACID 1 MG TAB PO (08:43)
[2017-09-05] MEDS: PRENATAL VITAMIN PO (08:43)
[2017-09-05] MEDS: RIVAROXABAN 10 MG TABLET PO (17:46)
[2017-09-05] MEDS: LATANOPROST 0.005% 2.5 ML OPH BOTH EYES (20:53)
[2017-09-06] MEDS: PANTOPRAZOLE (EC) 40 MG TAB PO (06:18)
[2017-09-06] MEDS: HYDROCODONE/APAP (10/325) TAB PO ×3 (06:52→16:18)
[2017-09-06] MEDS: FOLIC ACID 1 MG TAB PO (08:36)
[2017-09-06] MEDS: ASPIRIN 81 MG TAB PO (08:36)
[2017-09-06] MEDS: DULOXETINE 30 MG CAP DR PO (08:36)
[2017-09-06] MEDS: morphine (ER) 15 MG TAB PO ×2 (08:37→21:35)
[2017-09-06] MEDS: GABAPENTIN 300 MG CAP PO ×3 (08:37→21:34)
[2017-09-06] MEDS: PRENATAL VITAMIN PO (08:37)
[2017-09-06] MEDS: ASCORBIC ACID 500 MG TAB PO (08:37)
[2017-09-06] MEDS: AMLODIPINE 2.5 MG TAB PO (08:38)
[2017-09-06] MEDS: DOCUSATE SODIUM 100 MG CAP PO ×2 (08:38→21:35)
[2017-09-06] MEDS: BALSAM PERU/CASTOR OIL 60 GM TUBE TOP ×2 (08:39→21:34)
[2017-09-06] MEDS: traMADol 50 MG TAB PO (15:21)
[2017-09-06] MEDS: RIVAROXABAN 10 MG TABLET PO (18:36)
[2017-09-06] MEDS: LATANOPROST 0.005% 2.5 ML OPH BOTH EYES (21:34)
[2017-09-06] MEDS: PREGABALIN 100 MG CAP PO (21:35)
[2017-09-07] MEDS: PANTOPRAZOLE (EC) 40 MG TAB PO (06:12)
[2017-09-07] MEDS: HYDROCODONE/APAP (10/325) TAB PO ×2 (06:13→10:21)
[2017-09-07 07:15] LABS: ADD MAN DIFF? NO
[2017-09-07 07:56] LABS: ANION GAP 13 (8-16); BLOOD UREA NITROGEN 40 mg/dl (7-20); CALCIUM 8.8 mg/dl (8.4-10.2); CARBON DIOXIDE 32 mmol/L (21-31); CHLORIDE 95 mmol/L (97-110); CREATININE 0.72 mg/dl (0.44-1.00); GLUCOSE 83 mg/dl (70-220); POTASSIUM 4.8 mmol/L (3.5-5.1); SODIUM 135 mmol/L (135-144)
[2017-09-07 08:05] LABS: PHOSPHORUS 4.3 mg/dl (2.5-4.9)
[2017-09-07 08:23] LABS: BASOPHIL # 0.1 10^3/ul (0.0-0.1); EOSINOPHILS # 0.8 10^3/ul (0.0-0.5); EOSINOPHILS % 15.1 % (0.0-7.0); HEMOGLOBIN 9.6 g/dl (12.0-16.0); LYMPHOCYTES # 0.8 10^3/ul (0.8-2.9); LYMPHOCYTES % 16.5 % (15.0-51.0); MEAN CORPUSCULAR HEMOGLOBIN 28.1 pg (29.0-33.0); MEAN CORPUSCULAR VOLUME 87.7 fl (82.0-101.0); MONOCYTE # 0.4 10^3/ul (0.3-0.9); MONOCYTES % 8.5 % (0.0-11.0); NEUTROPHILS % 58.7 % (39.0-77.0); PLATELET COUNT 409 10^3/UL (140-415); RED BLOOD COUNT 3.42 10^6/ul (4.20-5.40); RED CELL DISTRIBUTION WIDTH 14.6 % (11.5-14.5)
[2017-09-07] MEDS: ASPIRIN 81 MG TAB PO (08:34)
[2017-09-07] MEDS: DULOXETINE 30 MG CAP DR PO (08:34)
[2017-09-07] MEDS: GABAPENTIN 300 MG CAP PO ×2 (08:34→13:00)
[2017-09-07] MEDS: DOCUSATE SODIUM 100 MG CAP PO (08:35)
[2017-09-07] MEDS: PRENATAL VITAMIN PO (08:35)
[2017-09-07] MEDS: AMLODIPINE 2.5 MG TAB PO (08:35)
[2017-09-07] MEDS: FOLIC ACID 1 MG TAB PO (08:36)
[2017-09-07] MEDS: morphine (ER) 15 MG TAB PO (08:36)
[2017-09-07] MEDS: ASCORBIC ACID 500 MG TAB PO (08:36)
[2017-09-07] MEDS: BALSAM PERU/CASTOR OIL 60 GM TUBE TOP (08:36)
[2017-09-07] MEDS: PREGABALIN 100 MG CAP PO (08:37)
== END 2017-09-07 13:15 | DRG 559 ==
LOC: VRC 19:59
PROC: F07Z5ZZ Bed Mobility Treatment (ICD-10-PCS; principal; 2017-08-27)
PROC: F08Z2ZZ Grooming/Personal Hygiene Treatment (ICD-10-PCS; 2017-08-27)
PROC: F06Z6ZZ Communicative/Cognitive Integration Skills Treatment (ICD-10-PCS; 2017-08-27)
DX: S72.012D Unspecified intracapsular fracture of left femur, subsequent encounter for closed fracture with routine healing (principal); G93.49 Other encephalopathy; N17.9 Acute kidney failure, unspecified; E46 Unspecified protein-calorie malnutrition; N39.0 Urinary tract infection, site not specified; F33.1 Major depressive disorder, recurrent, moderate; D64.9 Anemia, unspecified; G58.8 Other specified mononeuropathies; Z96.642 Presence of left artificial hip joint; B95.2 Enterococcus as the cause of diseases classified elsewhere; I10 Essential (primary) hypertension; M79.7 Fibromyalgia; F32.9 Major depressive disorder, single episode, unspecified; K21.9 Gastro-esophageal reflux disease without esophagitis; R52 Pain, unspecified; R32 Unspecified urinary incontinence; Z68.21 Body mass index [BMI] 21.0-21.9, adult; H40.9 Unspecified glaucoma; L89.90 Pressure ulcer of unspecified site, unspecified stage; F99 Mental disorder, not otherwise specified; F06.8 Other specified mental disorders due to known physiological condition; W18.30XD Fall on same level, unspecified, subsequent encounter
CPT/HCPCS: 73500; 80048; 80053; 81003; 83735; 84100; 85025; 87081; 87086; 92507; 92523; 92526; 92610; 97110; 97112; 97150; 97163; 97166; 97530; 97535; 97542